=== PATIENT | male | born 1975 | race Caucasian/White ===

== ENCOUNTER → 2021-12-05 | Emergency (ER) | payer OTHER ==
[~2021-12-05] MED LIST: CEPHALEXIN500 M1 PO; IBUPROFEN600 MG PO
== END | disposition home or self-care (01) ==
LOC: ER1 11:19
DX: S71.111A Laceration without foreign body, right thigh, initial encounter (principal); F17.290 Nicotine dependence, other tobacco product, uncomplicated; Z23 Encounter for immunization; W29.3XXA Contact with powered garden and outdoor hand tools and machinery, initial encounter; Y99.0 Civilian activity done for income or pay
CPT/HCPCS: 12042; 73564; 90471; 90715; 96374; 96375; 99283; J0690; J2270; J2405